=== PATIENT | male | born 1990 | race Caucasian/White ===

== ENCOUNTER 2016-06-18 09:05 | Emergency (ER) | payer OTHER ==
[~2016-06-18] VITALS: Ht 177.8 cm; Wt 75.7 kg
[2016-06-18 09:18] VITALS: TEMP 36.6; Ht 177.8 cm; Wt 75.7 kg
[2016-06-18] MEDS ORDERED: HYDROmorphone INJ 1 MG/ML SYR IV STA (09:31)
[2016-06-18] MEDS ORDERED: ONDANSETRON INJ 2 MG/ML 2 ML VIAL IV STA (09:31)
[2016-06-18] MEDS ORDERED: SODIUM CHLORIDE 0.9% 1000ML 1,000 ML IV STA (09:31)
[2016-06-18] MEDS ORDERED: KETOROLAC TROMETHAMINE 30 MG/ML VIAL IV STA (09:31)
--- NOTE | 2016-06-18 09:36 | EMERGENCY ROOM VISIT NOTE ---
History Report prepared by Ana: Yesenia Kaplan Under the Supervision of: Dr. Alden Cruz M.D. First contact with patient: 09:28 Chief Complaint: FLANK PAIN Stated Complaint: SUSPECTED KIDNEY STONE History of Present Illness The patient is a 25 year old male who presents to the Emergency Room from [facility] with complaints of constant right flank pain that began a couple hours ago. Since then, the pain has started to radiate into the right side of his abdomen. His current overall discomfort is a 10/10 in severity. He also complains of nausea and vomiting. He has never had similar pain in the past. The patient does not have any existing medical problems. He still has his gallbladder and appendix. He has never had an abdominal surgery. Source of History: patient Onset: a couple hours ago Position: other (right flank) Symptom Intensity: 10/10 Timing: constant Associated Symptoms: + nausea, + vomiting Review of Systems See HPI for pertinent positives & negatives. A total of 10 systems reviewed and were otherwise negative. Past Medical & Surgical Medical Problems: (1) No Known Active Medical Problems Family History No pertinent family history stated. Social History Smoking Status: Current Every Day Smoker Marital Status: single Housing Status: other ([facility]) Occupation Status: other (prisoner) Current/Historical Medications Scheduled Tamsulosin Hcl (Flomax), 0.4 MG PO DAILY Scheduled PRN Oxycodone/Acetaminophen 5MG/325MG (Percocet 5MG/325MG), 1-2 TAB PO Q4H PRN for Pain Allergies Coded Allergies: No Known Allergies (Unverified , 06/18/16) Physical Exam Vital Signs Date Time Temp Pulse Resp B/P Pulse Ox O2 Delivery O2 Flow Rate FiO2 06/18/16 10:50 78 18 146/93 99 Room Air 06/18/16 09:18 36.6 84 18 158/100 94 Room Air Physical Exam GENERAL: Patient is a healthy-appearing well-nourished 25 year old male. HEAD: Normocephalic atraumatic EYES: Ocular movements intact pupils equal and react to light OROPHARYNX mucous membranes are moist no exudates present no erythema or edema present NECK: Supple no nuchal rigidity CHEST: Good equal expansion LUNGS: Clear and equal to auscultation CARDIAC: Normal S1 and S2 ABDOMEN: Soft nontender no guarding BACK: No CVA tenderness EXTREMITIES: No pain upon palpation normal muscle strength in all groups no clubbing cyanosis or edema NEURO: Patient is following commands is answering questions appropriately. Alert and oriented x3 Cranial Nerves 2-12 grossly intact Medical Decision & Procedures ER Provider Diagnostic Interpretation: Radiology results as stated below per my review and radiologist interpretation: CT SCAN OF THE ABDOMEN AND PELVIS WITHOUT CONTRAST CLINICAL HISTORY: Right flank pain COMPARISON STUDY: No previous studies for comparison. TECHNIQUE: CT scan of the abdomen and pelvis was performed from the lung bases to the proximal femurs. Images are reviewed in the axial, sagittal, and coronal planes. IV contrast was not administered for this examination. CT DOSE: 689.81 mGycm FINDINGS: Lower chest: There are minor basilar atelectatic changes. Liver: The unenhanced liver is normal in size, contour, and attenuation. There is no intrahepatic biliary ductal dilatation. Gallbladder: Unremarkable. Spleen: Normal in size and attenuation. Pancreas: Unremarkable. Adrenal glands: Unremarkable. Kidneys: There is a 4 mm upper pole left renal calculus. There is mild right-sided hydronephrosis and hydroureter. There is a 3 mm calculus at the level of the right ureterovesical junction. Bowel: There are no transition zones to indicate bowel obstruction. There is no acute diverticulitis. The appendix appears normal. Peritoneum: There is no intraperitoneal free air or abdominal ascites. There is a small fat-containing right inguinal hernia versus lipomatous inguinal canal Vasculature: The abdominal aorta is normal in course and caliber. Adenopathy: None. Pelvic viscera: The bladder, and pelvic viscera are unremarkable. Skeletal structures: No destructive osseous lesions are seen. IMPRESSION: 1. 3 mm calculus at the level of the right UVJ with mild secondary obstructive changes 2. 4 mm nonobstructing left renal calculus 3. No evidence of bowel obstruction. No evidence of free air 4. Normal appendix Electronically signed by: Jerzy Kingston M.D. 06/18/2016 10:43 AM Dictated Date/Time: 06/18/2016 10:40 AM Laboratory Results 06/18/16 09:50 Red Blood Count 5.13, Mean Corpuscular Volume 93.8, Mean Corpuscular Hemoglobin 33.7, Mean Corpuscular Hemoglobin Concent 36.0, Mean Platelet Volume 9.9, Neutrophils (%) (Auto) 85.2, Lymphocytes (%) (Auto) 7.9, Monocytes (%) (Auto) 6.4, Eosinophils (%) (Auto) 0.1, Basophils (%) (Auto) 0.1, Neutrophils # (Auto) 12.88, Lymphocytes # (Auto) 1.20, Monocytes # (Auto) 0.96, Eosinophils # (Auto) 0.01, Basophils # (Auto) 0.02 06/18/16 09:50 Test 06/18/16 09:30 06/18/16 09:50 Urine Color YELLOW Urine Appearance CLEAR (CLEAR) Urine pH 7.5 (4.5-7.5) Urine Specific [place] 1.025 (1.000-1.030) Urine Protein NEG (NEG) Urine Glucose (UA) NEG (NEG) Urine Ketones NEG (NEG) Urine Occult Blood 3+ (NEG) Urine Nitrite NEG (NEG) Urine Bilirubin NEG (NEG) Urine Urobilinogen NEG (NEG) Urine Leukocyte Esterase NEG (NEG) Urine WBC (Auto) 1-5 /hpf (0-5) Urine RBC (Auto) >30 /hpf (0-4) Urine Hyaline Casts (Auto) 5-10 /lpf (0-5) Urine Epithelial Cells (Auto) 10-20 /lpf (0-5) Urine Bacteria (Auto) NEG (NEG) White Blood Count 15.11 K/uL (4.8-10.8) Red Blood Count 5.13 M/uL (4.7-6.1) Hemoglobin 17.3 g/dL (14.0-18.0) Hematocrit 48.1 % (42-52) Mean Corpuscular Volume 93.8 fL (80-100) Mean Corpuscular Hemoglobin 33.7 pg (25-34) Mean Corpuscular Hemoglobin Concent 36.0 g/dl (32-36) Platelet Count 259 K/uL (130-400) Mean Platelet Volume 9.9 fL (7.4-10.4) Neutrophils (%) (Auto) 85.2 % Lymphocytes (%) (Auto) 7.9 % Monocytes (%) (Auto) 6.4 % Eosinophils (%) (Auto) 0.1 % Basophils (%) (Auto) 0.1 % Neutrophils # (Auto) 12.88 K/uL (1.4-6.5) Lymphocytes # (Auto) 1.20 K/uL (1.2-3.4) Monocytes # (Auto) 0.96 K/uL (0.11-0.59) Eosinophils # (Auto) 0.01 K/uL (0-0.5) Basophils # (Auto) 0.02 K/uL (0-0.2) RDW Standard Deviation 42.4 fL (36.4-46.3) RDW Coefficient of Variation 12.3 % (11.5-14.5) Immature Granulocyte % (Auto) 0.3 % Immature Granulocyte # (Auto) 0.04 K/uL (0.00-0.02) Anion Gap 6.0 mmol/L (3-11) Est Creatinine Clear Calc Drug Dose 96.3 ml/min Estimated GFR () 96.1 Estimated GFR (Non- 83.0 BUN/Creatinine Ratio 7.8 (10-20) Calcium Level 9.5 mg/dl (8.5-10.1) Total Bilirubin 0.3 mg/dl (0.2-1) Direct Bilirubin < 0.1 mg/dl (0-0.2) Aspartate Amino Transf (AST/SGOT) 16 U/L (15-37) Alanine Aminotransferase (ALT/SGPT) 26 U/L (12-78) Alkaline Phosphatase 108 U/L (45-117) Total Protein 8.6 gm/dl (6.4-8.2) Albumin 4.8 gm/dl (3.4-5.0) Lipase 117 U/L (73-393) Labs reviewed by ED physician. Medications Administered Medications (Trade) Dose Ordered Sig/Taylor Route Start Time Stop Time Status Last Admin Dose Admin Ketorolac Tromethamine 30 mg 30 mg NOW STAT IV 06/18/16 09:31 06/18/16 09:33 DC 06/18/16 10:03 30 MG Sodium Chloride (Nss 1000ml) 1,000 ml @ 999 mls/hr Q1H1M STAT IV 06/18/16 09:31 06/18/16 10:31 DC 06/18/16 10:02 999 MLS/HR Ondansetron HCl (Zofran Inj) 4 mg NOW STAT IV 06/18/16 09:31 06/18/16 09:33 DC 06/18/16 10:03 4 MG Hydromorphone HCl (Dilaudid Inj) 1 mg NOW STAT IV 06/18/16 09:31 06/18/16 09:33 DC 06/18/16 10:03 1 MG Tamsulosin HCl (Flomax Cap) 0.4 mg NOW STAT PO 06/18/16 10:55 06/18/16 10:56 DC 06/18/16 11:03 0.4 MG ED Course 09: The patient was evaluated in room B12. A complete history and physical examination was performed. 0931: Ordered Dilaudid Inj 1 mg IV, Zofran Inj 4 mg IV, NSS 1000 ml @ 999 mls/ hr IV, Toradol Inj 30 mg IV. 1055: Ordered Flomax Cap 0.4 mg PO. 1102: Upon reexamination the patient is feeling better. I discussed results and treatment plan with the patient. He verbalizes agreement and understanding. The patient is ready for discharge. Medical Decision Differential diagnosis: Etiologies such as renal colic, appendicitis, diverticulitis, mesenteric ischemia, aortic pathology, infections, inflammatory bowel disease, PUD, biliary pathology, UTI, as well as others were entertained. This is a 25-year-old male who presents emergency department complaining of right lower quadrant abdominal pain. Patient has no tenderness on abdominal examination. Serial abdominal examinations were performed on the patient emergency department and at no time did the patient exhibit surgical abdomen. An IV was established, the patient given normal saline bolus, Toradol, Dilaudid , Zofran. He was sent for CAT scan of the abdomen and pelvis. The patient does have a 3 mm stone which I believe is the cause of his pain. He was started on Flomax. I believe he can be safely released back to correction. Patient and caretakers were in agreement with the treatment plan. Impression Primary Impression: Kidney stone Scribe Attestation The scribe's documentation has been prepared under my direction and personally reviewed by me in its entirety. I confirm that the note above accurately reflects all work, treatment, procedures, and medical decision making performed by me. Departure Information Dispostion Home / Self-Care Prescriptions Tamsulosin Hcl (FLOMAX) 0.4 Mg Cap 0.4 MG PO DAILY, #14 CAP Prov: Alden Cruz MD 06/18/16 Oxycodone/Acetaminophen 5MG/325MG (PERCOCET 5MG/325MG) Tab 1-2 TAB PO Q4H Y for Pain, #14 TAB Prov: Alden Cruz MD 06/18/16 Referrals [facility], [facility] (PCP) Patient Instructions Kidney Stones Expectant Therapy, Kidney Stones Prevent, Kidney Stones Tx Meds, My [facility] Additional Instructions [place]. Jimenez [place] [facility] [place]
[2016-06-18 09:59] LABS: BASO % 0.1 %; BASO ABS # 0.02 K/uL (0-0.2); COMPLETE YES; EOS % 0.1 %; HEMATOCRIT 48.1 % (42-52); IG% 0.3 %; LYMPH % 7.9 %; MEAN CELL VOLUME 93.8 fL (80-100); MEAN CORPUSCULAR HEMOGLOBIN 33.7 pg (25-34); MEAN PLATELET VOLUME 9.9 fL (7.4-10.4); MONO % 6.4 %; NEUT % 85.2 %; PLATELET COUNT 259 K/uL (130-400); RED BLOOD COUNT 5.13 M/uL (4.7-6.1); WHITE BLOOD COUNT 15.11 K/uL (4.8-10.8)
[2016-06-18 10:05] LABS: URINE APPEARANCE CLEAR (CLEAR); URINE BILIRUBIN NEG (NEG); URINE COLOR YELLOW; URINE NITRITE NEG (NEG); URINE PH 7.5 (4.5-7.5); URINE SPECIFIC GRAVITY 1.025 (1.000-1.030); UROBILINOGEN NEG (NEG)
[2016-06-18 10:07] LABS: MANUAL MICROSCOPIC REQUIRED? NO; REVIEW REQ? NO; SULFASALICYLIC ACID NEG (NEG)
[2016-06-18 10:23] LABS: ALT/SGPT 26 U/L (12-78); AST/SGOT 16 U/L (15-37); BLOOD UREA NITROGEN 9 mg/dl (7-18); BUN/CREATININE RATIO 7.8 (10-20); CALCIUM 9.5 mg/dl (8.5-10.1); CARBON DIOXIDE 31 mmol/L (21-32); CHLORIDE 106 mmol/L (98-107); GLUCOSE 112 mg/dl (70-99); SODIUM 143 mmol/L (136-145)
[2016-06-18 10:25] LABS: ALKALINE PHOSPHATASE 108 U/L (45-117)
--- NOTE | 2016-06-18 10:46 | DIAGNOSTIC IMAGING REPORT ---
CT SCAN OF THE ABDOMEN AND PELVIS WITHOUT CONTRAST CLINICAL HISTORY: Right flank pain COMPARISON STUDY: No previous studies for comparison. TECHNIQUE: CT scan of the abdomen and pelvis was performed from the lung bases to the proximal femurs. Images are reviewed in the axial, sagittal, and coronal planes. IV contrast was not administered for this examination. CT DOSE: 689.81 mGycm FINDINGS: Lower chest: There are minor basilar atelectatic changes. Liver: The unenhanced liver is normal in size, contour, and attenuation. There is no intrahepatic biliary ductal dilatation. Gallbladder: Unremarkable. Spleen: Normal in size and attenuation. Pancreas: Unremarkable. Adrenal glands: Unremarkable. Kidneys: There is a 4 mm upper pole left renal calculus. There is mild right-sided hydronephrosis and hydroureter. There is a 3 mm calculus at the level of the right ureterovesical junction. Bowel: There are no transition zones to indicate bowel obstruction. There is no acute diverticulitis. The appendix appears normal. Peritoneum: There is no intraperitoneal free air or abdominal ascites. There is a small fat-containing right inguinal hernia versus lipomatous inguinal canal Vasculature: The abdominal aorta is normal in course and caliber. Adenopathy: None. Pelvic viscera: The bladder, and pelvic viscera are unremarkable. Skeletal structures: No destructive osseous lesions are seen. IMPRESSION: 1. 3 mm calculus at the level of the right UVJ with mild secondary obstructive changes 2. 4 mm nonobstructing left renal calculus 3. No evidence of bowel obstruction. No evidence of free air 4. Normal appendix Electronically signed by: Jerzy Kingston M.D. 06/18/2016 10:43 AM Dictated Date/Time: 06/18/2016 10:40 AM
[2016-06-18 10:50] VITALS: BP 146/93; PULSE 78; O2SAT 99
[2016-06-18] MEDS ORDERED: TAMSULOSIN HCL 0.4 MG CAP PO STA (10:55)
[2016-06-18] MEDS ORDERED: OXYC-57 PO (11:00)
[2016-06-18] MEDS ORDERED: TAMS0.4C38 PO (11:00)
== END 2016-06-18 11:11 | disposition home or self-care (01) ==
LOC: C.EDB 09:07
DX: N20.0 Calculus of kidney (principal); F17.210 Nicotine dependence, cigarettes, uncomplicated; Z79.899 Other long term (current) drug therapy